=== PATIENT | male | born 1985 | race Caucasian/White ===

== ENCOUNTER 2017-11-24 11:32 | Emergency (ER) | payer MEDICAID ==
[~2017-11-24] VITALS: Ht 185.4 cm; Wt 84.4 kg
[2017-11-24 11:42] VITALS: Ht 185.4 cm; Wt 84.4 kg
[2017-11-24 12:12] VITALS: BP 136/90
== END 2017-11-24 12:12 | disposition home or self-care (01) ==
LOC: ED 11:32
DX: L30.9 Dermatitis, unspecified (principal)